=== PATIENT | female | born 1995 | race African-American/Black ===

== ENCOUNTER 2018-10-07 22:43 | Emergency (ER) | payer OTHER ==
--- NOTE | 2018-10-07 23:17 | ED Physician Documentation ---
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 No: LOC, Weakness, Paresthesias, Dyspnea, Nausea / vomiting Symptoms improve with: Rest Worsens with: Movement, Palpation Similar symptoms before: Has not had sx before Recently seen: Not recently seen - Additional information Additional information: slipped and fell when walking down stairs leading from her apartment last night, struck right knee on pavement and c/o right knee pain. Did not have neck pain initially, but has gradually developed right neck/shoulder pain as well. Review of Systems Musculoskeletal: reports: Neck pain, Joint pain, Joint swelling, Pain with weight bearing. denies: Back pain Neurologic: denies: Focal weakness, Numbness PD PAST MEDICAL HISTORY - Past Medical History Musculoskeletal: Scoliosis - Past Surgical History Past Surgical History: Yes - Present Medications Home Medications: Ambulatory Orders Medication Instructions Recorded Confirmed Epinephrine [Epipen 2-Jan] 0.3 mg IM ONCE PRN #1 unit 01/03/16 Norplant 01/03/16 oxyCODONE/ACET 5/325 [Percocet 5 1 - 2 each PO Q6H PRN #14 tablet 04/07/16 mg/325 mg] Hydrocodone/Acetaminophen 1 - 2 each PO Q6HR PRN #14 tablet 10/08/18 [Hydrocodone-Acetamin 5-325 mg] - Allergies Allergies/Adverse Reactions: Allergies Allergy/AdvReac Type Severity Reaction Status Date / Time codeine Allergy Unknown Verified 10/07/18 22:58 mozzarella cheese Allergy Anaphylaxis Uncoded 10/07/18 22:58 - Social History Does the pt smoke?: Yes Smoking Status: Current every day smoker Does the pt drink ETOH?: Yes - Immunizations Immunizations are current?: Yes PD ED PE NORMAL - Vitals Vital signs reviewed: Yes - General General: Alert and oriented X 3, No acute distress (NAD at rest; appears to have painful distress with exam/movement involving right knee), Well developed/nourished - HEENT HEENT: Atraumatic, PERRL, EOMI - Neck Neck: No bony TTP, Other (mild tenderness along the right trapezius ridge; no bony tenderness including midline neck and right scapula and clavicle) PD ED PE EXPANDED - Extremities Extremities: Tenderness, Limited ROM, Swelling, Abrasion, Right knee Results - Vitals Vitals: Vital Signs - 24 hr 10/07/18 10/08/18 22:54 01:03 Temperature 37.0 C Heart Rate 86 78 Respiratory 18 16 Rate Blood Pressure 130/85 H 125/92 H O2 Saturation 99 100 Oxygen O2 Source Room air - Rads (name of study) right knee xrays Radiology: Prelim report reviewed, See rad report PD MEDICAL DECISION MAKING - ED course Complexity details: reviewed results, re-evaluated patient, considered differential, d/w patient Departure - Departure Disposition: 01 Home, Self Care Clinical Impression: Fall, Knee sprain, Contusion of knee, right Condition: Good Instructions: ED Contusion Lower Ext, ED Immobilizer Knee, ED Sprain Knee Follow-Up: [facility] ([place] [Provider Group] [facility] [Provider Group] Prescriptions: Hydrocodone/Acetaminophen [Hydrocodone-Acetamin 5-325 mg] 1 - 2 each PO Q6HR PRN #14 tablet PRN Reason: Pain Forms: Activity restrictions Discharge Date/Time: 10/08/18 01:10
[2018-10-07] MEDS ORDERED: TETANUS/DIPHTHERIA/PERTUSSIS 0.5 ML SYRINGE IM ONE (23:32)
[2018-10-07] MEDS ORDERED: IBUPROFEN 600 MG TABLET PO STA (23:32)
--- NOTE | 2018-10-08 | XRAY Report ---
Reason: fall, swelling Procedure Date: 10/07/2018 Accession Number: [id number] / [id number] Procedure: XR - Knee 4 View RT CPT Code: FULL RESULT: EXAM: RIGHT KNEE RADIOGRAPHY EXAM DATE: 10/07/2018 11:57 PM. CLINICAL HISTORY: Fall, swelling. COMPARISON: None. TECHNIQUE: 3 views. FINDINGS: Bones: Normal. No fractures or bone lesions. Joints: Normal. No effusion. No subluxations. Soft Tissues: Normal. No soft tissue swelling. IMPRESSION: Normal knee radiography. [facility]
[2018-10-08] MEDS ORDERED: HYDROcod/ACET 5/325 Prepack 4 PO STA (00:50)
[2018-10-08 01:04] VITALS: BP 125/92
== END 2018-10-08 01:10 | disposition home or self-care (01) ==
LOC: ED 22:43
DX: S83.91XA Sprain of unspecified site of right knee, initial encounter (principal); S80.01XA Contusion of right knee, initial encounter; W01.198A Fall on same level from slipping, tripping and stumbling with subsequent striking against other object, initial encounter; Y93.01 Activity, walking, marching and hiking; Y92.039 Unspecified place in apartment as the place of occurrence of the external cause; F17.200 Nicotine dependence, unspecified, uncomplicated; Z23 Encounter for immunization
CPT/HCPCS: 73564; 90471; 90715; 99283; 99284; A9270